=== PATIENT | female | born 1980 | race Hispanic/Latino ===

== ENCOUNTER 2016-06-13 15:05 | Emergency (ER) | payer BC ==
[2016-06-13 15:14] VITALS: BMI 34.7
[2016-06-13 15:25] VITALS: RESP 20; TEMP 98; O2SAT 100
[2016-06-13] MEDS ORDERED: Magnesium Sulfate 2 GM in Sodium Chloride 0.9% 100 ML IVPB ONE (15:29)
[2016-06-13] MEDS: Albuterol-Ipratrop 3 mg / 0.5 (3 ml) UD IH SCH ×3 (15:30→16:36)
--- NOTE | 2016-06-13 15:33 | ED PDOC ---
Arrival/HPI - General Historian: Patient - General Chief Complaint: Allergic Reaction Time Seen by Provider: 06/13/16 15:25 - History of Present Illness Narrative History of Present Illness (Text): 06/13/16 15:32 35 y/o female, pmh including asthma, +smoker, nkda, c/o coughing and wheezing x 3-4 days. Pt. has productive coughing, worsening for the past 3 days, associated with the wheezing today, no night sweat, no palpitation, no numbness or tingling, no dizziness, no palpitation, no other medical or psychological complaints. (Adrián Lora) Past Medical History - Travel History Have you recently traveled outside [place] w/in the past 3 mons?: Yes - Infectious Disease Hx of Infectious Diseases: None - Reproductive Menopause: No - Cardiac Hx Cardiac Disorders: No - Pulmonary Hx Respiratory Disorders: No - Neurological Hx Neurological Disorder: No - HEENT Hx HEENT Disorder: No - Renal Hx Renal Disorder: No - Endocrine/Metabolic Hx Endocrine Disorders: No - Hematological/Oncological Hx Blood Disorders: No - Integumentary Hx Dermatological Disorder: No - Musculoskeletal/Rheumatological Hx Musculoskeletal Disorders: No - Gastrointestinal Hx Gastrointestinal Disorders: Yes Hx Gastroesophageal Reflux: Yes Other/Comment: IBS - Genitourinary/Gynecological Hx Genitourinary Disorders: No - Psychiatric Hx Psychophysiologic Disorder: No Hx Substance Use: No - Surgical History Other/Comment: right breast cycst removal. - Anesthesia Hx Anesthesia: No Hx Anesthesia Reactions: No Hx Malignant Hyperthermia: No Family/Social History - Physician Review Nursing Documentation Reviewed: Yes Family/Social History: Unknown Family HX Smoking Status: Never Smoked Hx Alcohol Use: No Hx Substance Use: No Allergies/Home Meds Allergies/Adverse Reactions: Allergies lincomycin Allergy (Verified 06/13/16 15:34) ANGIOEDEMA Review of Systems - Review of Systems Constitutional: absent: Fatigue, Fevers Eyes: absent: Vision Changes ENT: absent: Hearing Changes Respiratory: Cough, Sputum, Wheezing Cardiovascular: absent: Chest Pain Gastrointestinal: absent: Abdominal Pain, Nausea, Vomiting Musculoskeletal: absent: Arthralgias, Back Pain, Neck Pain, Joint Swelling, Myalgias Skin: absent: Rash, Pruritis, Skin Lesions, Laceration, Abscess, Ulcer, Cellulitis Neurological: absent: Headache, Dizziness, Focal Weakness, Gait Changes, Speech Changes, Facial Droop, Disequilibrium, Seizure Physical Exam Vital Signs Reviewed: Yes Temperature: Afebrile Blood Pressure: Normal Pulse: Regular Respiratory Rate: Normal Appearance: Positive for: Well-Appearing, Non-Toxic, Uncomfortable Pain Distress: None Mental Status: Positive for: Alert and Oriented X 3 - Systems Exam Head: Present: Atraumatic, Normocephalic Pupils: Present: PERRL Extroacular Muscles: Present: EOMI Conjunctiva: Present: Normal Mouth: Present: Moist Mucous Membranes Neck: Present: Normal Range of Motion Respiratory/Chest: Present: Wheezes, Decreased Breath Sounds, Rhonchi, Other (+ bilateral decrease aeration with wheezing). No: Respiratory Distress, Accessory Muscle Use, Rales, Retracting, Tachypneic, Tender to Palpation Cardiovascular: Present: Regular Rate and Rhythm, Normal S1, S2. No: Murmurs Abdomen: Present: Normal Bowel Sounds. No: Tenderness, Distention, Peritoneal Signs Back: Present: Normal Inspection Upper Extremity: Present: Normal Inspection. No: Cyanosis, Edema Lower Extremity: Present: Normal Inspection. No: Edema Neurological: Present: GCS=15, Speech Normal, Motor Func Grossly Intact, Gait Normal, Memory Normal Skin: Present: Warm, Dry, Normal Color. No: Rashes Psychiatric: Present: Alert, Oriented x 3, Normal Insight, Normal Concentration Vital Signs Temp Pulse Resp BP Pulse Ox 06/13/16 17:00 90 20 120/65 100 06/13/16 15:24 98.0 F 80 20 121/85 100 06/13/16 15:14 98 F 80 17 121/85 96 Medical Decision Making - Lab Interpretations I have reviewed the lab results: Yes Interpretation: No clinic. lab abnormalty - RAD Interpretation Energy Project Manager: Radiologist ED Course and Treatment: I was available for consultation during PA evaluation. The chart was reviewed by me, and I agree with disposition. The documented history was done by the physician comptometrist. The documented physical exam was done by the physician comptometrist. The documented procedures were done by the physician comptometrist. ( Gilbert Grady) 06/13/16 15:30 -labs -IV solumedrol/duoneb x3 prn -chest x-ray -peak flow -observe and reassess 06/13/16 18:09 -urine hcg negative -labs are non-significant -chest x-ray show no active disease -Lungs are bilateral clear to auscultate now, vitally stable, walking with normal gait and posture plus room air oxygen above 98% -Discharge home with zithromax, prednisone, albuterol MDI, promethazine, stop smoking, follow up with Dr. Steve tomorrow for medication adjustment regarding about your asthma, return to the ER for any new or worsening signs or symptoms. (Adrián Lora) - Lab Interpretations Lab Results: 06/13/16 15:45 06/13/16 15:45 Lab Results 06/13/16 15:45: WBC 9.3, RBC 4.33, Hgb 13.4, Hct 39.0, MCV 90.1, MCH 30.9, MCHC 34.4, RDW 12.8, Plt Count 191, MPV 11.1 H, Gran % 74.6 H, Lymph % (Auto) 12.5 L , [place] % (Auto) 6.6 H, Eos % (Auto) 6.0 H, Baso % (Auto) 0.3, Gran # 6.96 H, Lymph # 1.2, [place] # 0.6, Eos # 0.6, Baso # 0.03, Sodium 139, Potassium 4.5, Chloride 107, Carbon Dioxide 22, Anion Gap 15, BUN 18, Creatinine 1.2, Est GFR ( Amer) > 60, Est GFR (Non-Af Amer) 51, Random Glucose 98, Calcium 9.1, Total Bilirubin 0.7, AST 27, ALT 11, Alkaline Phosphatase 67, Total Protein 6.7 , Albumin 3.7, Globulin 3.0, Albumin/Globulin Ratio 1.2 - RAD Interpretation Radiology Orders: 06/13/16 15:28 CHEST PORTABLE [RAD] Stat Chest x-ray: no active disease (Adrián Lora) - Medication Orders Current Medication Orders: Discontinued Medications Albuterol/Ipratropium (Duoneb 3 Mg/0.5 Mg (3 Ml) Ud) 3 ml IH Q15M JESUS Stop: 06/13/16 16:01 Last Admin: 06/13/16 16:36 Dose: 3 ML Azithromycin (Zithromax) 500 mg PO STAT STA PRN Reason: Protocol Stop: 06/13/16 17:18 Last Admin: 06/13/16 19:24 Dose: 500 MG Magnesium Sulfate 2 gm/ Sodium (Chloride) 104 mls @ 102 mls/hr IVPB ONCE ONE Stop: 06/13/16 16:30 Last Admin: 06/13/16 16:24 Dose: 102 MLS/HR eMAR Start Stop Document 06/13/16 16:24 OCS (Rec: 06/13/16 16:24 OCS [id number]) Intravenous Solution Start Date 06/13/16 Start Time 16:24 Sodium Chloride (Sodium Chloride 0.9%) 1,000 mls @ 999 mls/hr IV .Q1H1M STA Stop: 06/13/16 18:19 Last Admin: 06/13/16 19:24 Dose: 999 MLS/HR eMAR Start Stop Document 06/13/16 19:24 OCS (Rec: 06/13/16 19:24 OCS [id number]) Intravenous Solution Start Date 06/13/16 Start Time 19:24 Methylprednisolone (Solu-Medrol) 125 mg IVP STAT STA Stop: 06/13/16 15:29 Last Admin: 06/13/16 15:54 Dose: 125 MG IVP Administration Document 06/13/16 15:54 SZA (Rec: 06/13/16 15:54 SZA [id number]) Charges for Administration # of IVP Administrations 1 - 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 Disposition/Present on Arrival - Present on Arrival Any Indicators Present on Arrival: No History of DVT/PE: No History of Uncontrolled Diabetes: No Urinary Catheter: No History of Decub. Ulcer: No History Surgical Site Infection Following: None - Disposition Have Diagnosis and Disposition been Completed?: Yes Disposition Time: 17:16 Patient Plan: Discharge - Disposition Diagnosis: Bronchitis Disposition: HOME/ ROUTINE Condition: IMPROVED Additional Instructions: -Discharge home with zithromax, prednisone, albuterol MDI, promethazine, stop smoking, follow up with Dr. Steve tomorrow for medication adjustment regarding about your asthma, return to the ER for any new or worsening signs or symptoms. Prescriptions: Albuterol HFA [Ventolin HFA 90 mcg/actuation (8 g)] 2 puff IH [id number] #1 in Promethazine DM [Phenergan DM Oral Syrup] 5 ml PO QID PRN #125 ml PRN Reason: Other Azithromycin [Zithromax] 250 mg PO DAILY #4 tab predniSONE [Prednisone] 2 tab PO DAILY #10 tab Referrals: Nestor Steve MD [Primary Care Provider] - Follow up with primary Forms: SCHOOL NOTE, WORK NOTE
[2016-06-13 16:19] LABS: ADD MANUAL DIFF? NO
[2016-06-13 16:31] LABS: BASO # 0.03 K/mm3 (0.0-2.0); BASO % 0.3 % (0.0-3.0); EOS # 0.6 (0.0-0.7); GRAN # 6.96 (1.4-6.5); GRAN % 74.6 % (50.0-68.0); LYMPH # 1.2 (1.2-3.4); LYMPH % 12.5 % (22.0-35.0); MEAN CELL VOLUME 90.1 fL (80.0-105.0); MEAN CORPUSCULAR HEMOGLOBIN 30.9 pg (25.0-35.0); MEAN CORPUSCULAR HGB CONC 34.4 g/dl (31.0-37.0); MEAN PLATELET VOLUME 11.1 fl (7.0-11.0); MONO # 0.6 (0.1-0.6); MONO % 6.6 % (1.0-6.0); PLATELET COUNT 191 10^3/uL (120.0-450.0); RED CELL DISTRIBUTION WIDTH 12.8 % (11.5-14.5); WHITE BLOOD COUNT 9.3 10^3/ul (4.5-11.0)
[2016-06-13 16:42] LABS: ALB/GLOB RATIO 1.2 (1.1-1.8); ALKALINE PHOSPHATASE 67 U/L (38-133); ALT/SGPT 11 U/L (7-56); AST/SGOT 27 U/L (15-39); BILIRUBIN,TOTAL 0.7 mg/dL (0.2-1.3); BLOOD UREA NITROGEN 18 mg/dL (7-21); CALCIUM 9.1 mg/dL (8.4-10.5); CARBON DIOXIDE 22 mmol/L (21-33); CHLORIDE 107 mmol/L (98-107); GFR AFRICAN-AMERICAN > 60; GLUCOSE,RANDOM 98 mg/dL (70-110); POTASSIUM 4.5 mmol/L (3.6-5.0); SODIUM 139 mmol/L (132-148); TOTAL PROTEIN 6.7 g/dL (5.8-8.3)
[2016-06-13 17:02] VITALS: BP 120/65; PULSE 90
[2016-06-13] MEDS ORDERED: Sodium Chloride 0.9% 1,000 ML IV STA (17:19)
--- NOTE | 2016-06-14 08:12 | RAD ---
HISTORY: cough and wheezing COMPARISON: No prior. FINDINGS: LUNGS: No active pulmonary disease. PLEURA: No significant pleural effusion identified, no pneumothorax apparent. CARDIOVASCULAR: Normal. OSSEOUS STRUCTURES: No significant abnormalities. VISUALIZED UPPER ABDOMEN: Normal. OTHER FINDINGS: None. IMPRESSION: No active disease.
== END 2016-06-13 19:30 | disposition home or self-care (01) ==
LOC: ED 15:05
DX: J40 Bronchitis, not specified as acute or chronic (principal); F17.210 Nicotine dependence, cigarettes, uncomplicated
CPT/HCPCS: 71010; 80053; 85025; 96374; 99284; J2930; J3475; J7040